=== PATIENT | female | born 1955 | race Caucasian/White ===

== ENCOUNTER 2016-04-07 03:00 | Emergency (ER) | payer BC ==
[2016-04-07] MEDS ORDERED: HYDROMORPHONE HCL 1 MG/ML CPJ IVP ONE ×2 (03:23→04:24)
[2016-04-07] MEDS ORDERED: PROMETHAZINE HCL 25 MG/ML VIAL IVP ONE (03:23)
--- NOTE | 2016-04-07 03:27 | Emergency Department Record ---
History of Present Illness - General Chief Complaint: Headache Migraine Stated Complaint: HEADACHE Time Seen by Provider: 04/07/16 03:04 Source: Patient Mode of Arrival: Ambulatory Limitations: No limitations - History of Present Illness Initial Comments: pt has had a headache for 6 days that wont go away. it started suddenly and has gotten worse gradually. she has no other symptoms MD Complaint: Headache Onset/Timin -: Days(s) Onset Description: Gradual Location: Diffuse Severity: Mild Severity scale (1-10): 6 Quality: Other Consistency: Constant, Getting worse Improves With: Nothing Worsens With: None, Light Context: Other Associated Symptoms: Other Other Symptoms: Other Treatment Prior to Arrival Comment:: magnesium and tylenol yesterday at 6:30 - Related Data Home Medications Medication Instructions Recorded Confirmed Last Taken Bupropion HCl [Bupropion Xl] 300 mg PO DAILY 04/07/16 04/07/16 Unknown Estradiol [Climara] 1 patch TOP ASDIR 04/07/16 04/07/16 Unknown Fexofenadine HCl [Angely Allergy] 180 mg PO DAILY 04/07/16 04/07/16 Unknown Polyethylene Glycol 3350 [Miralax] 17 gm PO DAILY 04/07/16 04/07/16 Unknown Allergies Allergy/AdvReac Type Severity Reaction Status Date / Time aspirin Allergy post acid Verified 04/07/16 03:12 reflux surgery NSAIDS (Non-Steroidal Allergy "they Verified 04/07/16 03:13 Anti-Inflamma don't want me to take them" Travel Screening - Travel/Exposure Within Last 30 Days Have you traveled within the last 30 days?: No - Travel/Exposure Within Last Year Have you traveled outside the [place] in the last year?: No - Additonal Travel Details Have you been exposed to anyone with a communicable illness?: No - Travel Symptoms Symptom Screening: None Review of Systems Reviewed: No additional complaints except as noted below Constitutional: Reports: As per HPI. Denies: Chills, Fever, Malaise, Night sweats, Weakness, Weight change Eyes: Reports: As per HPI. Denies: Eye discharge, Eye pain, Photophobia, Vision change ENT: Reports: As per HPI. Denies: Congestion, Dental pain, Ear pain, Epistaxis , Hearing loss, Throat pain Respiratory: Reports: As per HPI. Denies: Cough, Dyspnea, Hemoptysis, Stridor, Wheezes Cardiovascular: Reports: As per HPI. Denies: Arrhythmia, Chest pain, Dyspnea on exertion, Edema, Murmurs, Orthopnea, Palpitations, Paroxysmal nocturnal dyspnea, Rheumatic Fever, Syncope Endocrine: Reports: As per HPI. Denies: Fatigue, Heat or cold intolerance, Polydipsia, Polyuria Gastrointestinal: Reports: As per HPI. Denies: Abdominal pain, Constipation, Diarrhea, Hematemesis, Hematochezia, Melena, Nausea, Vomiting Genitourinary: Reports: As per HPI. Denies: Abnormal menses, Discharge, Dyspareunia, Dysuria, Frequency, Hematuria, Incontinence, Retention, Urgency Musculoskeletal: Reports: As per HPI. Denies: Arthralgia, Back pain, Gout, Joint swelling, Myalgia, Neck pain Skin: Reports: As per HPI. Denies: Bruising, Change in color, Change in hair/ nails, Lesions, Pruritus, Rash Neurological: Reports: As per HPI. Denies: Abnormal gait, Confusion, Headache, Numbness, Paresthesias, Seizure, Tingling, Tremors, Vertigo, Weakness Psychiatric: Reports: As per HPI. Denies: Anxiety, Auditory hallucinations, Depression, Homicidal thoughts, Suicidal thoughts, Visual hallucinations Hematological/Lymphatic: Reports: As per HPI. Denies: Anemia, Blood Clots, Easy bleeding, Easy bruising, Swollen glands Past Medical History - SOCIAL HISTORY Smoking Status: Never smoker Alcohol Use: Occassional Alcohol Use Comment: wine once a week Drug Use: None - RESPIRATORY Hx Respiratory Disorders: No Comment:: environmental allergies - CARDIOVASCULAR Hx Cardio Disorders: No - NEURO Hx Neuro Disorders: No - GI Hx GI Disorders: No - Hx Genitourinary Disorders: No - ENDOCRINE Hx Endocrine Disorders: No - MUSCULOSKELETAL Hx Musculoskeletal Disorders: No - PSYCH Hx Psych Problems: No - HEMATOLOGY/ONCOLOGY Hx Hematology/Oncology Disorders: No Family Medical History Any Significant Family History?: No Physical Exam - General General Appearance: Alert, Oriented x3, Cooperative, Mild distress - Head Head exam: Normal inspection - Eye Eye exam: Normal appearance, PERRL, EOMI Pupils: Normal accommodation - ENT ENT exam: Normal exam, Mucous membranes moist, Normal external ear exam, Normal orophraynx, TM's normal bilaterally Ear exam: Normal external inspection. negative: External canal tenderness Nasal Exam: Normal inspection. negative: Discharge, Sinus tenderness Mouth exam: Normal external inspection, Tongue normal Teeth exam: Normal inspection. negative: Dental caries Throat exam: Normal inspection. negative: Tonsillar erythema, Tonsillar exudate - Neck Neck exam: Normal inspection, Full ROM. negative: Tenderness - Respiratory Respiratory exam: Normal lung sounds bilaterally. negative: Respiratory distress - Cardiovascular Cardiovascular Exam: Regular rate, Normal rhythm, Normal heart sounds - GI/Abdominal GI/Abdominal exam: Soft, Normal bowel sounds. negative: Tenderness - Rectal Rectal exam: Deferred - exam: Deferred - Extremities Extremities exam: Normal inspection, Full ROM, Normal capillary refill. negative: Tenderness - Back Back exam: Reports: Normal inspection, Full ROM. Denies: Muscle spasm, Rash noted, Tenderness - Neurological Neurological exam: Alert, CN II-XII intact, Normal gait, Oriented X3 - Psychiatric Psychiatric exam: Normal affect, Normal mood - Skin Skin exam: Dry, Intact, Normal color, Warm Course Vital Signs 04/07/16 03:02 Temperature 97.9 F Pulse Rate 68 Respiratory 20 Rate Blood Pressure 147/92 Pulse Ox 100 - Reevaluation(s) Reevaluation #1: 04/07/16 05:31 ct neg. spinal tap d/w pt who adamently refused twice. Medical Decision Making - Lab Data Result diagrams: 04/07/16 03:45 04/07/16 03:45 Disposition Disposition: Discharge Clinical Impression: Headache Qualifiers: Headache type: unspecified Headache chronicity pattern: acute headache Intractability: intractable Qualified Code(s): R51 - Headache Disposition: Home, Self-Care Condition: (1) Good Instructions: Acute Headache (ED) Additional Instructions: follow up with family doctor. rest. return sooner if worse without fail. Forms: Patient Portal Access, Return to Work/School
[2016-04-07 03:55] LABS: BASO % 1.1 % (0-6); EOS % 5.2 % (0-6); GRAN % 54.7 % (47-80); HEMATOCRIT 40.7 % (35.0-47.0); HEMOGLOBIN 13.6 gm/dl (11.6-16.0); LYMPH % 30.8 % (16-45); MEAN CELL VOLUME 97.6 fl (81-97); MEAN CORPUSCULAR HEMOGLOBIN 32.6 pg (27-33); MEAN CORPUSCULAR HGB CONC 33.4 g/dl (32-36); MEAN PLATELET VOLUME 10.1 fl (7.4-10.4); MONO % 8.2 % (0-9); PLATELET COUNT 217 K/uL (130-400); RED BLOOD COUNT 4.17 M/uL (3.80-5.40); RED CELL DISTRIBUTION WIDTH 12.6 % (11.5-14.5); WHITE BLOOD COUNT W/O DIFF 5.6 K/uL (4.2-12.2)
[2016-04-07 04:05] LABS: ANION GAP 9.9 (7-16); BLOOD UREA NITROGEN 14 mg/dL (7-17); CARBON DIOXIDE 29.1 mmol/L (22-30); CREATININE 0.7 mg/dL (0.52-1.04); EST GLOMERULAR FILTRATION RATE > 60 ml/min; GLUCOSE,RANDOM 98 mg/dL (70-110)
[2016-04-07 04:29] LABS: ERYTHROCYTE SEDIMENTATION RATE 12 mm/hr (0-30)
[2016-04-07] MEDS ORDERED: KETOROLAC 30 MG/ML VIAL IVP ONE (05:17)
--- NOTE | 2016-04-12 14:13 | CT SCAN REPORT ---
EXAM: CT OF THE BRAIN WITHOUT CONTRAST HISTORY: HEADACHE. TECHNIQUE: Sequential axial images were obtained from the foramen magnum to the vertex without contrast administration. FINDINGS: The brain volume is normal. No large territorial infarct, hemorrhage , mass effect, or midline shift. No extraaxial fluid collection. The orbits, paranasal sinuses and mastoid air cells appear normal. IMPRESSION: NO ACUTE INTRACRANIAL ABNORMALITY IS APPRECIATED. JOB NUMBER: [id number] MTDD
== END 2016-04-07 05:52 | disposition home or self-care (01) ==
LOC: ER 03:00
DX: R51 Headache (principal)
CPT/HCPCS: 99284 ×2; 96376; 96374; 96375; 85025; 85651; 80048; 70450; J1885; J1170; J2550

== ENCOUNTER 2017-11-19 14:46 | Emergency (ER) | payer BC ==
--- NOTE | 2017-11-19 15:13 | Emergency Department Record ---
History of Present Illness - General Chief Complaint: Ankle/Foot Injury Stated Complaint: RT FOOT PAIN/SWELLING BRUISING Time Seen by Provider: 11/19/17 15:07 Source: Patient Mode of Arrival: Ambulatory Limitations: No limitations - History of Present Illness Initial Comments: 62 yo female presents after a fall off a chair last night. She inverted her foot. She has medial-lateral foot pain. No ankle, knee or hip pain. She has 4th toe swelling. No nail injuries. No swelling or bruising. She has some chronic foot pain from plantar faciitis. No other injuries. She has seen several peer support specialist in the past without improvement of her faciitis. MD Complaint: Foot injury Onset/Timin -: Days(s) Injury: Foot: Right Type of Injury: Other Place: Home Severity scale (1-10): 4 Improves With: Nothing Worsens With: Weight bearing Context: Fall Other Symptoms: Other Associated Symptoms: Ambulatory - Related Data Allergies Allergy/AdvReac Type Severity Reaction Status Date / Time aspirin Allergy post acid Unverified 08/03/16 18:30 reflux surgery NSAIDS (Non-Steroidal Allergy "they Unverified 08/03/16 18:30 Anti-Inflamma don't want me to take them" Travel Screening - Travel/Exposure Within Last 30 Days Have you traveled within the last 30 days?: No Review of Systems Constitutional: Denies: Chills, Fever, Malaise, Weakness Eyes: Denies: Eye discharge ENT: Denies: Congestion, Throat pain Respiratory: Denies: Cough Cardiovascular: Denies: Chest pain, Syncope Endocrine: Denies: Fatigue Gastrointestinal: Denies: Diarrhea, Nausea, Vomiting Musculoskeletal: Reports: As per HPI, Arthralgia Skin: Reports: As per HPI, Bruising. Denies: Change in color Neurological: Denies: Numbness, Weakness Psychiatric: Denies: Anxiety Hematological/Lymphatic: Denies: Easy bleeding, Easy bruising Past Medical History - SOCIAL HISTORY Smoking Status: Never smoker - RESPIRATORY Hx Respiratory Disorders: No Comment:: environmental allergies - CARDIOVASCULAR Hx Cardio Disorders: No - NEURO Hx Neuro Disorders: No - GI Hx GI Disorders: No - Hx Genitourinary Disorders: No - ENDOCRINE Hx Endocrine Disorders: No - MUSCULOSKELETAL Hx Musculoskeletal Disorders: No - PSYCH Hx Psych Problems: No - HEMATOLOGY/ONCOLOGY Hx Hematology/Oncology Disorders: No Family Medical History Any Significant Family History?: No Physical Exam - General General Appearance: Alert, Oriented x3, Cooperative, No acute distress Limitations: No limitations - Head Head exam: Atraumatic, Normal inspection - Eye Eye exam: Normal appearance - ENT ENT exam: Normal exam Ear exam: Normal external inspection Nasal Exam: Normal inspection - Neck Neck exam: Normal inspection - Cardiovascular Peripheral Pulses: 2+: Dorsalis Pedis (R) - Extremities Extremities exam: Full ROM, Normal capillary refill, Tenderness (foot only- see foot report). negative: Calf tenderness, Joint swelling, Pedal edema Image of Feet: 1 - normal inspection of this area, tender to palpation, intact skin. 2 - mild redness and swelling, intact nail - Neurological Neurological exam: Alert, Oriented X3 - Psychiatric Psychiatric exam: Normal affect, Normal mood - Skin Skin exam: Dry, Intact, Normal color, Warm Course Vital Signs 11/19/17 14:51 Temperature 97.8 F Pulse Rate 58 L Respiratory 18 Rate Blood Pressure 132/72 Pulse Ox 100 - Reevaluation(s) Reevaluation #1: 11/19/17 15:31 The XR was reviewed. No obvious displaced fracture or dislocation She has a DonJoy already at home. I recommended to use it until pain resolves We discussed followup with PCP as well in 1-2 weeks if any pain continues as she may need further imaging. Disposition Disposition: Discharge Clinical Impression: Foot sprain Qualifiers: Encounter type: initial encounter Laterality: right Qualified Code(s): S93.601A - Unspecified sprain of right foot, initial encounter Disposition: Home, Self-Care Condition: (1) Good Instructions: Ankle Sprain (ED) Additional Instructions: Return to ED if your symptoms worsen or if you have any new concerns. Review the final Emergency Record and test results with your doctor on follow up If pain continues you will need additional test such as a CT scan Forms: Patient Portal Access Time of Disposition: 15:34 Quality - Quality Measures Quality Measures: N/A - Blood Pressure Screening Does Patient Have Any of the Following: No Blood Pressure Classification: Pre-Hypertensive BP Reading Systolic Measurement: 132 Diastolic Measurement: 72 Screening for High Blood Pressure: < Pre-Hypertensive BP, F/U Documented > [ [id number]] Pre-Hypertensive Follow-up Interventions: Referral to alternative/primary care provider.
--- NOTE | 2017-11-21 07:01 | RADIOLOGY REPORT ---
EXAM: RIGHT FOOT HISTORY: PATIENT HAS A HISTORY OF FALL. TECHNIQUE: Three views of the right foot are provided along with the comparison study dated 03/13/17. FINDINGS: There is no radiographic evidence of a fracture or dislocation of the right foot. No significant soft tissue abnormalities are visualized. IMPRESSION: NO RADIOGRAPHIC EVIDENCE OF AN ACUTE PROCESS INVOLVING THE RIGHT FOOT. JOB NUMBER: [id number] MTDD
== END 2017-11-19 15:42 | disposition home or self-care (01) ==
LOC: ER 14:46
DX: S93.601A Unspecified sprain of right foot, initial encounter (principal); W07.XXXA Fall from chair, initial encounter
CPT/HCPCS: 99283

== ENCOUNTER 2019-02-20 05:39 | Day surgery (SDC) | payer BC ==
[2019-02-20] MEDS ORDERED: MIDAZOLAM HCL 2MG/2ML VIAL IV ONE (05:40)
[2019-02-20] MEDS ORDERED: FENTANYL PF 100MCG/2ML VIAL IV ONE (05:40)
[2019-02-20] MEDS ORDERED: DEXAMETHASONE 4 MG/ML 1ML VIAL IVP ONE ×2 (05:40)
[2019-02-20] MEDS ORDERED: FLUMAZENIL 1MG/10ML VIAL IV ONE (05:40)
[2019-02-20] MEDS ORDERED: PROPOFOL 10 MG/ML VIAL IV ONE (05:40)
[2019-02-20] MEDS ORDERED: SEVOFLURANE 250 ML INH ONE (05:40)
[2019-02-20] MEDS ORDERED: 0.9 % SODIUM CHLORIDE 10 ML VIAL IVP ONE (05:40)
[2019-02-20] MEDS ORDERED: ROPIVACAINE HCL (NAROPIN) /PF 5MG/ML 20ML VIAL IV ONE ×2 (05:40)
[2019-02-20] MEDS ORDERED: ONDANSETRON HCL IV 4 MG/2 ML VIAL IVP ONE (05:40)
[2019-02-20] MEDS ORDERED: LIDOCAINE 2% MDV (20MG/ML) 20ML VIAL IV ONE (05:40)
[2019-02-20 05:57] LABS: ABSOLUTE NEUTROPHIL COUNT 3.76; BASO % 1.2 % (0-6); GRAN % 57.3 % (47-80); HEMATOCRIT 38.4 % (35.0-47.0); HEMOGLOBIN 12.4 gm/dl (11.6-16.0); LYMPH % 29.7 % (16-45); MEAN CELL VOLUME 97.5 fl (81-97); MEAN CORPUSCULAR HEMOGLOBIN 31.5 pg (27-33); MEAN CORPUSCULAR HGB CONC 32.3 g/dl (32-36); MEAN PLATELET VOLUME 9.3 fl (7.4-10.4); MONO % 7.8 % (0-9); PLATELET COUNT 300 K/uL (130-400); RED BLOOD COUNT 3.94 M/uL (3.80-5.40); WHITE BLOOD COUNT W/O DIFF 6.6 K/uL (4.2-12.2)
[2019-02-20] MEDS ORDERED: ACETAMINOPHEN 1,000 MG/100 ML BTL IVPB ONE (06:00)
[2019-02-20 06:13] LABS: BLOOD UREA NITROGEN 23 mg/dL (8-23); CREATININE 0.6 mg/dL (0.5-0.9); EST GLOMERULAR FILTRATION RATE > 60 mL/min; GLUCOSE,RANDOM 110 mg/dL (74-109)
[2019-02-20] MEDS ORDERED: RINGERS SOLUTION,LACTATED 1,000 ML IV ONE ×2 (06:41→08:00)
[2019-02-20] MEDS ORDERED: CEFAZOLIN 2 Gram 2 GM/50 ML BAG IVPB ONE (07:21)
[2019-02-20] MEDS: FENTANYL CITRATE/PF (PACU) 50 MCG/ML VIAL IVP PRN ×2 (08:55→09:03)
[2019-02-20] MEDS ORDERED: HYDROMORPHONE HCL 2 MG/ML VIAL IM PRN (08:59)
[2019-02-20] MEDS ORDERED: FENTANYL PF 100MCG/2ML VIAL IVP ONE (09:04)
[2019-02-20] MEDS ORDERED: HYDROMORPHONE HCL 2 MG/ML VIAL IVP PRN (09:04)
[2019-02-20] MEDS ORDERED: HYDROCODONE/APAP 5/325MG TABLET PO ONE (09:18)
--- NOTE | 2019-02-21 07:52 | Operative Note ---
DATE OF SURGERY: 02/20/2019 SURGEON: Ryan Brasher D.O. REFERRING PHYSICIAN: Fracisco Wang D.O. PREOPERATIVE DIAGNOSIS: COMMINUTED DISPLACED FRACTURE OF THE RIGHT PATELLA. POSTOPERATIVE DIAGNOSIS: COMMINUTED DISPLACED FRACTURE OF THE RIGHT PATELLA. OPERATION: OPEN REDUCTION INTERNAL FIXATION RIGHT PATELLA. DESCRIPTION: This 62-year-old female was taken to the Operating Room and placed in the supine position on the operating room table where general anesthesia was induced. The right lower extremity was prepped with Hibiclens and draped in the usual sterile fashion. It was exsanguinated and the tourniquet was inflated to 300 mmHg. A longitudinal incision was made in the midline over the patella approximately 6 inches in length, dissection was carried down through the skin and subcutaneous tissue. Hemostasis was obtained with the electrocautery. The fracture site was easily identified. Clot and debris was removed from the fracture site. The condyle below appeared to be normal without any defects. The superior pole of the patella appeared to be one solid piece, however, the inferior fragment was severely comminuted and these fragments are not clearly seen on the radiographs. We were able to manipulate these fracture fragments to as close to anatomic position as possible. A guidewire was passed longitudinally through both fragments on the lateral side and subsequently the cannulated screw 4.5 mm with a washer was placed from inferior to superior and additional guidewire was placed on the medial side, this was the more comminuted side and again we placed a 4.5 cannulated screw with a washer over this guidewire. We then advanced the screws without crushing the bone and subsequently the guidewires were removed and a Green suture passer was placed through the screws to allow us to pass a #5 FiberWire. A single limb of these sutures were passed through each screw and a [id number] closure over the top was accomplished to stabilize the fragments. The articular fragments appeared to be anatomically aligned. The repair was reinforced by soft tissue closure of the capsule with #2 Vicryl. In addition, some stitches were placed adjacent to the screws to additionally support the repair in a [id number] fashion. Once this had been accomplished we felt that the fragments were satisfactorily repaired as well as could be accomplished considering the serial comminution of the inferior fragment. We then again irrigated the wound and the subcutaneous tissue was closed with 0 Vicryl and the subcutaneous tissue was stapled. Sterile dressings were applied, a knee immobilizer was applied and the patient was taken to the Recovery Room in satisfactory condition. GROSS PATHOLOGY: This patient demonstrated severe comminution of the inferior fragment not appreciated on the radiographs, however, we were able to place two 4.5 mm cannulated screws which were partially threaded and good purchase in the proximal fragment was accomplished. A washer was placed on each suture for additional support. We then used a cejbpw-bb-kltex #5 FiberWire suture through the cannulated screws in the mrykjb-jg-jkicl formation over the top to help secure the reduction and stabilization of the screws. The patient was then taken to the Recovery Room in satisfactory condition. JOB NUMBER: [id number] MTDD
== END 2019-02-20 11:10 | disposition home or self-care (01) ==
LOC: SUR 05:39
PROVIDERS: ATTEND Orthopaedic Surgery
DX: S82.041A Displaced comminuted fracture of right patella, initial encounter for closed fracture (principal); G47.33 Obstructive sleep apnea (adult) (pediatric)
CPT/HCPCS: 27524; 01392; 64447; 64448; 85025; 80048; 93005; 76942; C1713 ×3; C1769; J2405; J3010; J1170; J0690; J2795; J7120